=== PATIENT | male | born 1995 | race African-American/Black ===

== ENCOUNTER 2022-11-10 13:13 | Inpatient (IN) | payer OTHER, MEDICAID ==
[~2022-11-10] VITALS: Ht 172.7 cm; Wt 57.6 kg
[2022-11-10 13:19] VITALS: BP 131/69
--- NOTE | 2022-11-10 13:19 | NUR ---
26 Y/O MALE BIB CAREGIVER, C/O DIARRHEA, VOMITING, ABD DISTENTION SINCE LAST NIGHT. SKIN IS PINK/WARM/DRY; PT ALERT AND AWAKE, NON VERBAL, DOES NOT AMBULATE, PT IS CURRENTLY NON AMBULATORY IN OWN WHEELCHAIR; LUNGS CLEAR BL; HR EVEN AND REGULAR; PT TACHY CARDIAC 100HR; CAREGIVER REPORTS 1 EPISODE OF DIARRHEA THIS MORNING PRIOR TO ARRIVAL. ERMD MADE AWARE. PMH: CEREBRAL PALSY, ATAXIA HEMIPLEGIA, LORNA, CHRONIC MAJOR CONDITION, CONGENITAL MUSCULOSKELETAL DEFORMITIES OF SPINE NKA MED: SEE LIST
[2022-11-10 16:04] LABS: BASOPHILS % (AUTO) 0.4 % (0.0-2.0); EOSINOPHILS # (AUTO) 0.1 K/uL (0-0.4); EOSINOPHILS % (AUTO) 0.7 % (0.0-4.0); HEMATOCRIT 48.6 % (36-52); HEMOGLOBIN 15.5 g/dL (12.0-18.0); LYMPHOCYTES # (AUTO) 1.2 K/uL (2.0-11.5); LYMPHOCYTES % (AUTO) 11.5 % (20.5-51.1); MEAN CORPUSCULAR HEMOGLOBIN 23 pg (27-31); MEAN CORPUSCULAR HGB CONC 32 g/dL (33-37); MEAN CORPUSCULAR VOLUME 73.2 fL (80-94); MONOCYTES # (AUTO) 0.4 K/uL (0.8-1.0); MONOCYTES % (AUTO) 3.9 % (1.7-9.3); NEUTROPHILS # (AUTO) 8.8 K/uL (1.8-7.7); NEUTROPHILS % (AUTO) 83.5 % (42.2-75.2); PLATELET COUNT (AUTO) 210 K/uL (140-450); RED BLOOD CELL COUNT(AUTO) 6.64 MIL/uL (4.20-6.10); RED CELL DISTRIBUTION WIDTH 13.4 % (11.6-13.7); WHITE BLOOD COUNT (AUTO) 10.5 K/uL (4.8-10.8)
[2022-11-10 16:50] LABS: ALBUMIN 4.8 g/dL (3.4-5.0); CARBON DIOXIDE 28.4 mmol/L (21-32); POTASSIUM 4.4 mmol/L (3.5-5.1); TOTAL BILIRUBIN 0.7 mg/dL (0.0-1.0)
--- NOTE | 2022-11-10 17:43 | NUR ---
Patient returned from CT scan to bed 11 at this time.
[2022-11-10] MEDS ORDERED: LORazepam 2 MG/ML VIAL IVP PRN (18:50)
[2022-11-10] MEDS ORDERED: MAG SULF 2000 MG/WATER PREMIX 50 ML IV PRN (18:50)
[2022-11-10] MEDS ORDERED: POTASSIUM CHLORIDE 10 MEQ TABER PO PRN (18:50)
[2022-11-10] MEDS ORDERED: ZOLPIDEM 10 MG TAB PO PRN (18:50)
[2022-11-10] MEDS ORDERED: DOCUSATE SODIUM 100 MG GELCAP PO PRN (18:50)
[2022-11-10] MEDS ORDERED: bisacodyL 10 MG SUPP RC ONE (18:50)
[2022-11-10] MEDS ORDERED: ONDANSETRON 4 MG/2 ML VIAL IVP PRN (18:50)
[2022-11-10] MEDS ORDERED: ACETAMINOPHEN 325 MG TAB PO PRN (18:50)
[2022-11-10] MEDS ORDERED: MORPHINE SULFATE 2 MG/ML SYR IVP PRN (18:50)
[2022-11-10] MEDS ORDERED: SENN-74 PO (19:01)
[2022-11-10] MEDS ORDERED: LACT10SO86 PO (19:01)
[2022-11-10] MEDS ORDERED: BACL10TA4 PO (19:01)
[2022-11-10] MEDS ORDERED: DOCU-299 PO (19:01)
[2022-11-10] MEDS: DEXT 5% /NACL 0.9% 1,000 ML IV SCH (19:40)
--- NOTE | 2022-11-10 21:23 | NUR ---
Report given for transfer of care to Yolanda CROWDER
[2022-11-10 21:53] VITALS: BP 105/72
[2022-11-10] MEDS: LEVOFLOXACIN 500 MG/D5W PREMIX 100 ML IV SCH (21:54)
--- NOTE | 2022-11-10 22:10 | NUR ---
SPOKE WITH NEXT OF [address] REGARDING ADMISSION QUESTIONS.
--- NOTE | 2022-11-10 22:13 | NUR ---
RECEIVED PT FROM ER. PATIENT IS AWAKE AND NON-VERBAL. NO S/SX OF PAIN NOR DISCOMFORT. NO ACUTE RESPIRATORY DISTRESS NOTED. SKIN WARM AND DRY TO TOUCH. INCONTINENT OF URINE, PERINEAL CARE RENDERED,MADE COMFORTABLE IN BED. SAFETY PRECAUTION IN PLACE, CALL LIGHT IN REACH. Addendum: 11/10/22 at 2216 by Meenu Davila RN ADMITTING TIME [id number]
--- NOTE | 2022-11-11 | NUR ---
REPOSITIONED PT. HEAD OF THE BED ELEVATED. NO S/SX OF PAIN NOR DISCOMFORT.
--- NOTE | 2022-11-11 02:00 | NUR ---
REPOSITIONED PT. NO DIARRHEA, NO VOMITING AT THIS TIME. HEAD OF THE BED ELEVATED.
[2022-11-11 04:00] VITALS: BP 91/62
--- NOTE | 2022-11-11 06:01 | NUR ---
AM CARE RENDERED. MADE COMFORTABLE IN BED. ALL NEEDS ATTENDED TO. NO DISTRESS NOTED. SAFETY PRECAUTIONS IN PLACE, CALL LIGHT IN REACH.
--- NOTE | 2022-11-11 07:08 | NUR ---
RECEIVED REPORT FROM MECHANICAL SYSTEMS DESIGN ENGINEER NURSE MEGHAN FOR CONTINUITY OF CARE. PT SLEEPING, EASILY AROUSABLE. RESPIRATIONS EVEN AND UNLABORED ON RA. PT NPO. NPO SIGN IN PLACE. IV SITE ON OSEAS 24G, INFUSING IVF. CALL LIGHT WITHIN REACH. SAFETY PRECAUTIONS IN PLACE.
[2022-11-11 07:10] LABS: ANION GAP 12.4 (8-16); CARBON DIOXIDE 29.5 mmol/L (21-32); CREATININE 0.9 mg/dL (0.6-1.3); POTASSIUM 3.9 mmol/L (3.5-5.1)
[2022-11-11 07:13] LABS: BASOPHILS # (AUTO) 0.1 K/uL (0.00-0.22); BASOPHILS % (AUTO) 1.5 % (0.0-2.0); EOSINOPHILS # (AUTO) 0.2 K/uL (0-0.4); HEMATOCRIT 42.2 % (36-52); HEMOGLOBIN 13.4 g/dL (12.0-18.0); LYMPHOCYTES # (AUTO) 1.5 K/uL (2.0-11.5); LYMPHOCYTES % (AUTO) 29.3 % (20.5-51.1); MEAN CORPUSCULAR HEMOGLOBIN 23 pg (27-31); MEAN CORPUSCULAR HGB CONC 32 g/dL (33-37); MONOCYTES # (AUTO) 0.4 K/uL (0.8-1.0); MONOCYTES % (AUTO) 8.1 % (1.7-9.3); NEUTROPHILS # (AUTO) 2.9 K/uL (1.8-7.7); NEUTROPHILS % (AUTO) 58.1 % (42.2-75.2); PLATELET COUNT (AUTO) 174 K/uL (140-450); RED BLOOD CELL COUNT(AUTO) 5.78 MIL/uL (4.20-6.10); RED CELL DISTRIBUTION WIDTH 13.3 % (11.6-13.7); WHITE BLOOD COUNT (AUTO) 5.1 K/uL (4.8-10.8)
[2022-11-11 08:00] VITALS: BP 96/70
--- NOTE | 2022-11-11 08:00 | NUR ---
REVIEWED AND DISCUSSED PLAN OF CARE WITH JACOB CRUZ PT IN STABLE CONDITION.
--- NOTE | 2022-11-11 11:18 | NUR ---
ASSISTED SOFTWARE CONSULTANT IN DOING MORNING CARE. NO BM. PT TOLERATED WELL.
[2022-11-11] MEDS: DEXT 5% /NACL 0.9% 1,000 ML IV SCH (11:42)
[2022-11-11 16:00] VITALS: BP 105/74
--- NOTE | 2022-11-11 18:05 | NUR ---
RECEIVED ORDER FROM MD TO ADVANCE DIET TO REGULAR SOFT DIET. CALLED [facility] FOR DINNER FOOD TRAY.
--- NOTE | 2022-11-11 19:07 | NUR ---
ENDORSED PT TO OUT PATIENT THERAPIST NURSE MEGHAN FOR CONTINUITY OF CARE. ALL NEEDS MET THROUGHOUT SHIFT PT IS IN STABLE CONDITION.
--- NOTE | 2022-11-11 19:10 | NUR ---
RECEIVED PT IN BED, AWAKE AND SMILING. NO S/SX OF PAIN NOR DISCOMFORT. NO ACUTE RESPIRATORY DISTRESS. SKIN WARM AND DRY TO TOUCH. IVF INFUSING WELL ORDERED. BED IN THE LOWEST AND LOCKED POSITION FOR SAFETY, CALL LIGHT IN REACH.
[2022-11-11 20:00] VITALS: BP 125/82
[2022-11-11] MEDS: LEVOFLOXACIN 500 MG/D5W PREMIX 100 ML IV SCH (20:10)
--- NOTE | 2022-11-11 22:00 | NUR ---
REPOSITIONED PT. HEAD OF THE BED ELEVATED.
--- NOTE | 2022-11-12 | NUR ---
PATIENT IS ASLEEP. BREATHING EVEN AND UNLABORED. CALL LIGHT IN REACH.
--- NOTE | 2022-11-12 03:45 | NUR ---
INCONTINENT OF URINE, CLEANED PT. REPOSITIONED PT. NO S/SX OF DISTRESS NOTED. CALL LIGHT IN REACH.
[2022-11-12] MEDS: DEXT 5% /NACL 0.9% 1,000 ML IV SCH ×2 (03:57→20:45)
[2022-11-12 04:00] VITALS: BP 126/75
--- NOTE | 2022-11-12 06:42 | NUR ---
PATIENT IS ASLEEP. ALL NEEDS ATTENDED TO. NO DISTRESS NOTED. SAFETY PRECAUTIONS MAINTAINED DURING THE SHIFT, CALL LIGHT REMAINS WITHIN REACH.
[2022-11-12 06:58] LABS: BASOPHILS # (AUTO) 0.2 K/uL (0.00-0.22); BASOPHILS % (AUTO) 3.6 % (0.0-2.0); EOSINOPHILS # (AUTO) 0.1 K/uL (0-0.4); EOSINOPHILS % (AUTO) 2.3 % (0.0-4.0); HEMOGLOBIN 13.3 g/dL (12.0-18.0); LYMPHOCYTES # (AUTO) 1.6 K/uL (2.0-11.5); LYMPHOCYTES % (AUTO) 31.7 % (20.5-51.1); MEAN CORPUSCULAR HEMOGLOBIN 23 pg (27-31); MEAN CORPUSCULAR HGB CONC 31 g/dL (33-37); MEAN CORPUSCULAR VOLUME 74.4 fL (80-94); MONOCYTES # (AUTO) 0.5 K/uL (0.8-1.0); MONOCYTES % (AUTO) 9.7 % (1.7-9.3); NEUTROPHILS # (AUTO) 2.7 K/uL (1.8-7.7); NEUTROPHILS % (AUTO) 52.7 % (42.2-75.2); PLATELET COUNT (AUTO) 166 K/uL (140-450); RED BLOOD CELL COUNT(AUTO) 5.79 MIL/uL (4.20-6.10); RED CELL DISTRIBUTION WIDTH 13.4 % (11.6-13.7); WHITE BLOOD COUNT (AUTO) 5.1 K/uL (4.8-10.8)
[2022-11-12 08:00] VITALS: BP 102/55
[2022-11-12 08:01] LABS: ANION GAP 11.9 (8-16); CARBON DIOXIDE 28.7 mmol/L (21-32); CREATININE 0.9 mg/dL (0.6-1.3); POTASSIUM 4.6 mmol/L (3.5-5.1)
--- NOTE | 2022-11-12 08:41 | NUR ---
PATIENT HAS BEEN SCREENED AND CATEGORIZED MODERATE NUTRITION RISK. PATIENT WILL BE SEEN WITHIN 3-5 DAYS OF ADMISSION. REVIEWED BY SHIRA WILDER RD
[2022-11-12 16:00] VITALS: BP 105/52
--- NOTE | 2022-11-12 19:10 | NUR ---
RECEIVED REPORT FROM DAY SHIFT NURSE SIGGY FOR CONTINUITY OF CARE. PT AWAKE. RESPIRATIONS EVEN AND UNLABORED ON RA.SKIN INTACT, WARM AND DRY TO TOUCH. IV SITE ON OSEAS 24G, INFUSING IVF. CALL LIGHT WITHIN REACH. SAFETY PRECAUTIONS IN PLACE.
[2022-11-12 20:00] VITALS: BP 123/72
[2022-11-12] MEDS: LEVOFLOXACIN 500 MG/D5W PREMIX 100 ML IV SCH (21:13)
--- NOTE | 2022-11-12 21:13 | NUR ---
IV ANTIBIOTIC ADMINISTERED BY VEL STOCK. NO ADVERSE REACTION NOTED.
[2022-11-13 04:00] VITALS: BP 127/91
--- NOTE | 2022-11-13 04:41 | NUR ---
DID MORNING CARE WITH COSMETICIAN. PT TOLERATED WELL. NO DISTRESS NOTED. NO SIGN OF PAIN. PT REMAINED CLEAN AND DRY.
--- NOTE | 2022-11-13 07:09 | NUR ---
ENDORSED PT TO DAY SHIFT NURSE ROMINA FOR CONTINUITY OF CARE. ALL NEEDS MET THROUGHOUT SHIFT. PT IS IN STABLE CONDITION.
[2022-11-13 07:32] LABS: BASOPHILS % (AUTO) 0.7 % (0.0-2.0); EOSINOPHILS # (AUTO) 0.2 K/uL (0-0.4); EOSINOPHILS % (AUTO) 3.7 % (0.0-4.0); HEMATOCRIT 42.6 % (36-52); HEMOGLOBIN 13.2 g/dL (12.0-18.0); LYMPHOCYTES # (AUTO) 1.5 K/uL (2.0-11.5); MEAN CORPUSCULAR HEMOGLOBIN 23 pg (27-31); MEAN CORPUSCULAR HGB CONC 31 g/dL (33-37); MEAN CORPUSCULAR VOLUME 74.1 fL (80-94); MONOCYTES # (AUTO) 0.4 K/uL (0.8-1.0); MONOCYTES % (AUTO) 7.8 % (1.7-9.3); NEUTROPHILS % (AUTO) 57.8 % (42.2-75.2); PLATELET COUNT (AUTO) 168 K/uL (140-450); RED BLOOD CELL COUNT(AUTO) 5.75 MIL/uL (4.20-6.10); RED CELL DISTRIBUTION WIDTH 13.4 % (11.6-13.7); WHITE BLOOD COUNT (AUTO) 5.1 K/uL (4.8-10.8)
[2022-11-13 07:38] LABS: CARBON DIOXIDE 30.5 mmol/L (21-32); CREATININE 0.8 mg/dL (0.6-1.3); POTASSIUM 4.5 mmol/L (3.5-5.1)
[2022-11-13 08:00] VITALS: BP 108/74
--- NOTE | 2022-11-13 08:00 | NUR ---
Patient's Plan of Care was discussed and reviewed with KNUCKLE STRAP SEWER:
[2022-11-13] MEDS: DEXT 5% /NACL 0.9% 1,000 ML IV SCH (14:27)
[2022-11-13 15:31] VITALS: BP 108/74
[2022-11-13 16:00] VITALS: BP_SYST 108; BP_SYST 121; BP_DIAS 70; BP_DIAS 74
--- NOTE | 2022-11-13 16:45 | NUR ---
CALLED JENNY CROWDER FROM [facility]. GAVE REPORT FOR CONTINUITY OF PT CARE.
--- NOTE | 2022-11-13 18:17 | NUR ---
DISCHARGE PACKET GIVEN TO DARWIN NURSE. IV AND NAME BAND REMOVED. PT PICKED UP BY NURSE. ALL BELONGINGS TAKEN. PT IN WHEELCHAIR TAKEN TO FRONT LOBBY. PT IN STABLE CONDITION. DC TO [facility].
== END 2022-11-13 18:20 | DRG 392 ==
LOC: MED 13:13 → MTU 18:49
PROVIDERS: ADMIT Family Medicine; ATTEND Family Medicine
DX: A09 Infectious gastroenteritis and colitis, unspecified (principal); F79 Unspecified intellectual disabilities; Z20.822 Contact with and (suspected) exposure to COVID-19; G80.9 Cerebral palsy, unspecified; Z79.899 Other long term (current) drug therapy
CPT/HCPCS: 36415; 74018; 80048; 80053; 83690; 83735; 85025; 87081; 96365; 99285; J1956; Q0092